=== PATIENT | male | born 1980 | race Caucasian/White ===

== ENCOUNTER → 2025-04-20 12:54 | Outpatient (REF) | payer OTHER, SELFPAY | LOC: DHSLP 12:54 | PROVIDERS: ATTENDING PHYSICIAN Internal Medicine Critical Care Medicine; FAMILY PHYSICIAN Nurse Practitioner Family | DX: G47.30 Sleep apnea, unspecified (principal); R06.83 Snoring | CPT/HCPCS: 95800 ==